=== PATIENT | female | born 1990 | race Two or more races ===

== ENCOUNTER → 2017-04-23 | Outpatient (CLI) | payer OTHER ==
[2017-04-23 07:46] LABS: BASO # 0.1 x10^3/uL (0.0-0.2); BASO % 1 % (0-3); EOS % 4 % (0-3); HEMATOCRIT 39.1 % (36.0-47.0); HEMOGLOBIN 12.1 g/dL (12.0-15.5); LYMPH # 3.8 x10^3/uL (1.0-4.8); LYMPH % 40 % (24-48); MEAN CORPUSCULAR HEMOGLOBIN 21 pg (25-35); MEAN CORPUSCULAR HGB CONC 31 g/dL (31-37); MEAN CORPUSCULAR VOLUME 68 fL (79-100); MONO % 8 % (0-9); NEUT % 47 % (31-73); PLATELET COUNT 255 x10^3/uL (140-400); RED BLOOD COUNT 5.74 x10^6/uL (3.50-5.40); RED CELL DISTRIBUTION WIDTH 15.2 % (11.5-14.5); WHITE BLOOD COUNT 9.3 x10^3/uL (4.0-11.0)
[2017-04-23 08:06] LABS: ALBUMIN 4.2 g/dL (3.4-5.0); ALBUMIN/GLOBULIN RATIO 1.2 (1.0-1.7); CREATININE 0.6 mg/dL (0.6-1.0); GFR 119.9; POTASSIUM 3.8 mmol/L (3.5-5.1); TOTAL BILIRUBIN 0.2 mg/dL (0.2-1.0); TOTAL PROTEIN 7.6 g/dL (6.4-8.2)
[2017-04-23 08:37] LABS: FREE T4 0.95 ng/dL (0.76-1.46)
[2017-04-23 08:39] LABS: ANISOCYTOSIS SLIGHT; PLT ESTIMATE ADEQUATE (ADEQUATE)
== END | disposition home or self-care (01) ==
LOC: EKG 07:01
PROVIDERS: ATTEND Internal Medicine Cardiovascular Disease
DX: R60.0 Localized edema (principal); R00.2 Palpitations
CPT/HCPCS: 36415; 80053; 84439; 84443; 84481; 85025; 93225

== ENCOUNTER 2017-05-17 20:58 | Emergency (ER) | payer OTHER ==
[~2017-05-17] VITALS: Ht 190.5 cm; Wt 72.6 kg
[2017-05-17 21:40] LABS: BASO # 0.1 x10^3/uL (0.0-0.2); BASO % 1 % (0-3); EOS % 3 % (0-3); HEMOGLOBIN 12.2 g/dL (12.0-15.5); LYMPH % 37 % (24-48); MEAN CORPUSCULAR HEMOGLOBIN 22 pg (25-35); MEAN CORPUSCULAR HGB CONC 31 g/dL (31-37); MEAN CORPUSCULAR VOLUME 69 fL (79-100); MONO % 7 % (0-9); NEUT % 53 % (31-73); PLATELET COUNT 259 x10^3/uL (140-400); RED BLOOD COUNT 5.65 x10^6/uL (3.50-5.40); RED CELL DISTRIBUTION WIDTH 15.4 % (11.5-14.5); WHITE BLOOD COUNT 10.9 x10^3/uL (4.0-11.0)
[2017-05-17 21:48] LABS: CALCIUM 9.2 mg/dL (8.5-10.1); CREATININE 0.7 mg/dL (0.6-1.0); GFR 100.4; POTASSIUM 3.6 mmol/L (3.5-5.1)
[2017-05-17 21:53] LABS: ALBUMIN 4.3 g/dL (3.4-5.0); ALBUMIN/GLOBULIN RATIO 1.3 (1.0-1.7); TOTAL BILIRUBIN 0.2 mg/dL (0.2-1.0); TOTAL PROTEIN 7.6 g/dL (6.4-8.2)
[2017-05-17 22:08] LABS: PLT ESTIMATE ADEQUATE (ADEQUATE)
[2017-05-17 22:09] LABS: HYPOCHROMIA SLIGHT; MICROCYTOSIS MARKED
[2017-05-17] MEDS ORDERED: KETOROLAC 30 MG/ML INJ. IV ONE (22:30)
--- NOTE | 2017-05-17 23:26 | RAD ---
Limited Abdominal Ultrasound Clinical History : Right upper quadrant pain. The liver shows diffuse fatty infiltration. It is normal in size without focal lesions. The gallbladder is contracted. It is not thick walled. No pericholecystic fluid is seen. It is difficult to evaluate for gallstone due to contraction. Common bile duct measures 3mm. The bile ducts are not dilated.The right kidney is normal. Proximal IVC is patent.The aorta is not visualized. IMPRESSION: Fatty liver, otherwise normal limited abdominal sonogram. Electronically signed by: Edith Jimenes MD (05/17/2017 11:22 PM) [facility]
[2017-05-17] MEDS ORDERED: ONDANSETRON PF 4 MG/2 ML VIAL. IV ONE (23:45)
[2017-05-18 00:30] VITALS: BP 115/59
[2017-05-18] MEDS ORDERED: HYDR-971 PO (00:37)
--- NOTE | 2017-05-18 00:37 | PHYS DOC ---
Past Medical History Past Medical History: No Pertinent History Past Surgical History: Appendectomy Alcohol Use: Rarely Drug Use: None Adult General Chief Complaint Chief Complaint: ABDOMINAL PAIN HPI HPI Patient is a 27 year old female who presents with right upper quadrant pain for 2 days. The pain waxes and wanes but does not go away. It is gotten worse over this time. It feels like a gas pain. She's had some nausea but no vomiting. She uses Zofran for that. The patient had a pain like this once quite a long time ago and they thought it might be her gallbladder. It has not been a recurrent problem. The patient works nights, she was not able to sleep during the day because of the pain. She took Tylenol and ibuprofen without relief. She tried Carafate and gas relief medication without relief. Her last bowel movement was one and half days ago which is not unusual for her. She has been recently on a "ketogenic diet" and has been avoiding carbs and her diet has been higher fat and protein. She had a pork chop earlier this evening and some zucchini. Patient denies , she has a Mirena. Review of Systems Review of Systems Constitutional: Denies fever or chills [] Respiratory: Denies cough or shortness of breath [] GI: As in history of present illness : Denies dysuria Current Medications Current Medications Current Medications Medications (Trade) Dose Ordered Sig/Ramesh Start Time Stop Time Status Last Admin Dose Admin Ketorolac Tromethamine (Toradol) 30 mg 1X ONCE 05/17/17 22:30 05/17/17 22:31 DC 05/17/17 22:38 30 MG Ondansetron HCl (Zofran) 4 mg 1X ONCE 05/17/17 23:45 05/17/17 23:46 DC 05/17/17 23:34 4 MG Allergies Allergies Allergies Coded Allergies Type Severity Reaction Last Updated Verified latex Allergy Intermediate Rash 05/17/17 Yes Physical Exam Physical Exam Constitutional: Well developed, well nourished, no acute distress, non-toxic appearance. Patient does appear uncomfortable, holding her right upper quadrant. HENT: Normocephalic, atraumatic, bilateral external ears normal, nose normal. [ ] Eyes: conjunctiva normal, no discharge. [] Neck: Normal range of motion, no stridor. [] Cardiovascular:Heart rate regular rhythm, no murmur [] Lungs & Thorax: Bilateral breath sounds clear to auscultation [] Abdomen: Bowel sounds normal, soft, nondistended, no masses, no pulsatile masses. Right upper quadrant tenderness, no rebound or guarding. Equivocal positive Perkins's. Skin: Warm, dry, no erythema, no rash. [] Extremities: No tenderness, no cyanosis, no clubbing, ROM intact, no edema. [] Neurologic: Alert and oriented X 3, normal motor function, normal sensory function, no focal deficits noted. [] Current Patient Data Vital Signs Vital Signs Date Time Temp Pulse Resp B/P (MAP) Pulse Ox O2 Delivery O2 Flow Rate FiO2 05/18/17 00:30 115/59 (77) 05/17/17 21:20 96.4 77 16 98 Room Air 96.4 Lab Values Laboratory Tests Test 05/17/17 21:24 05/17/17 21:25 POC Urine HCG, Qualitative Hcg negative (Negative) White Blood Count 10.9 x10^3/uL (4.0-11.0) Red Blood Count 5.65 x10^6/uL (3.50-5.40) H Hemoglobin 12.2 g/dL (12.0-15.5) Hematocrit 39.0 % (36.0-47.0) Mean Corpuscular Volume 69 fL (79-100) L Mean Corpuscular Hemoglobin 22 pg (25-35) L Mean Corpuscular Hemoglobin Concent 31 g/dL (31-37) Red Cell Distribution Width 15.4 % (11.5-14.5) H Platelet Count 259 x10^3/uL (140-400) Neutrophils (%) (Auto) 53 % (31-73) Lymphocytes (%) (Auto) 37 % (24-48) Monocytes (%) (Auto) 7 % (0-9) Eosinophils (%) (Auto) 3 % (0-3) Basophils (%) (Auto) 1 % (0-3) Neutrophils # (Auto) 5.8 x10^3uL (1.8-7.7) Lymphocytes # (Auto) 4.0 x10^3/uL (1.0-4.8) Monocytes # (Auto) 0.7 x10^3/uL (0.0-1.1) Eosinophils # (Auto) 0.3 x10^3/uL (0.0-0.7) Basophils # (Auto) 0.1 x10^3/uL (0.0-0.2) Platelet Estimate Adequate (ADEQUATE) Hypochromasia Slight Microcytosis Marked Sodium Level 140 mmol/L (136-145) Potassium Level 3.6 mmol/L (3.5-5.1) Chloride Level 104 mmol/L (98-107) Carbon Dioxide Level 29 mmol/L (21-32) Anion Gap 7 (6-14) Blood Urea Nitrogen 15 mg/dL (7-20) Creatinine 0.7 mg/dL (0.6-1.0) Estimated GFR (Cockcroft-Gault) 100.4 BUN/Creatinine Ratio 21 (6-20) H Glucose Level 96 mg/dL (70-99) Calcium Level 9.2 mg/dL (8.5-10.1) Total Bilirubin 0.2 mg/dL (0.2-1.0) Aspartate Amino Transferase (AST) 16 U/L (15-37) Alanine Aminotransferase (ALT) 32 U/L (14-59) Alkaline Phosphatase 66 U/L (46-116) Total Protein 7.6 g/dL (6.4-8.2) Albumin 4.3 g/dL (3.4-5.0) Albumin/Globulin Ratio 1.3 (1.0-1.7) Lipase 232 U/L (73-393) Laboratory Tests 05/17/17 21:25 Laboratory Tests 05/17/17 21:25 EKG EKG [] Radiology/Procedures Radiology/Procedures Right upper quadrant ultrasound read by the radiologist. Gallbladder appears contracted but there is no evidence of pericholecystic fluid or wall inflammation. No stones are seen. Ducts are normal. Fatty infiltration of the liver, otherwise negative.[] Course & Med Decision Making Course & Med Decision Making Pertinent Labs and Imaging studies reviewed. (See chart for details) 27-year-old female who is in good general health presents with 2 days of right upper quadrant abdominal pain, waxing and waning but not going away. Labs are entirely normal. Right upper quadrant ultrasound is unrevealing. KUB does show some increased stool in the colon although no large gas bubble. We will try laxatives and I gave her a few hydrocodone for pain so she can get some sleep, try clear liquid and no fat diet for a couple of days. See instructions for plan. [] Dragon Disclaimer Dragon Disclaimer This electronic medical record was generated, in whole or in part, using a voice recognition dictation system. Departure Departure Impression: Primary Impression: Right upper quadrant abdominal pain of unknown etiology Disposition: 01 HOME, SELF-CARE Condition: STABLE Referrals: UNKNOWN PCP NAME (PCP) Patient Instructions: Abdominal Pain, [id number], Constipation, Adult, Easy- to-Read Additional Instructions: As we discussed, go home and take a dose of MiraLAX. Continue to take MiraLAX every 2-4 hours until you have "good results". If you have a good bowel movement and that relieves your pain, we know that is probably the cause. Follow a clear liquid/no fat diet for 2 or 3 days to see if that helps. Hydrocodone as needed for pain. Not while working or driving. Scripts Hydrocodone/Apap 5-325 (NORCO 5-325 TABLET) 1 Each Tablet 1-2 TAB PO Q4-6HRS for abdominal pain, #10 TAB Prov: TOÑO SALINAS MD 05/18/17 TOÑO SALINAS MD May 18, 2017 00:37
--- NOTE | 2017-05-18 07:15 | RAD ---
Upright abdomen, 05/18/2017: History: Pain No free air is evident in the abdomen. There is moderate amount of stool in the visualized portions of the colon. There is no evidence of organomegaly. The lung bases are clear. No acute abnormality is identified on this limited exam.
== END 2017-05-18 00:46 | disposition home or self-care (01) ==
LOC: ER 20:58
DX: R10.11 Right upper quadrant pain (principal); R11.0 Nausea; Z91.040 Latex allergy status; Z90.49 Acquired absence of other specified parts of digestive tract
CPT/HCPCS: 36415; 74000; 76705; 80053; 81025; 83690; 85025; 96374; 96375; 99285; J1885; J2405